=== PATIENT | female | born 1970 | race Asian ===

== ENCOUNTER → 2017-08-11 | Outpatient (REF) | payer OTHER | LOC: M SFHCWAGY 09:22 | PROVIDERS: ATTEND Nurse Practitioner Women's Health | DX: Z12.4 Encounter for screening for malignant neoplasm of cervix (principal) ==

== ENCOUNTER → 2017-10-30 | Outpatient (REF) | payer OTHER ==
[2017-10-30 13:55] LABS: BASO # 0.1 10^3/uL (0.0-0.2); BASO % 0.9 % (0.0-1.0); EOS # 0.1 10^3/uL (0.0-0.50); EOS % 2.1 % (0.0-3.0); HEMATOCRIT 38.9 % (36.0-47.0); HEMOGLOBIN 11.8 g/dl (12.0-16.0); IMMATURE GRANULOCYTE % 0.3 % (0-0); LYMPH # 1.5 10^3/uL (1.5-4.5); LYMPH % 21.8 % (24.0-44.0); MEAN CORPUSCULAR HEMOGLOBIN 20.2 pg (27.0-33.0); MEAN CORPUSCULAR HGB CONC 30.3 g/dl (32.0-36.5); MEAN CORPUSCULAR VOLUME 66.5 fl (80.0-96.0); MONO # 0.4 10^3/uL (0.0-0.8); MONO % 5.6 % (0.0-5.0); NEUTROPHILS # 4.7 10^3/uL (1.8-7.7); NEUTROPHILS % 69.3 % (36.0-66.0); PLATELET COUNT, AUTOMATED 489 10^3/uL (150-450); RED BLOOD COUNT 5.85 10^6/uL (4.00-5.40); RED CELL DISTRIBUTION WIDTH 15.6 % (11.5-14.5); WHITE BLOOD COUNT 6.8 10^3/uL (4.0-10.0)
[2017-10-30 14:19] LABS: ALBUMIN 3.9 GM/DL (3.2-5.2); ALBUMIN/GLOBULIN RATIO 1.05 (1.00-1.93); ALKALINE PHOSPHATASE 60 U/L (45-117); ALT/SGPT 21 U/L (12-78); AMYLASE 73 U/L (25-115); ANION GAP 5 MEQ/L (8-16); AST/SGOT 21 U/L (7-37); BILIRUBIN,TOTAL 0.3 MG/DL (0.2-1.0); BLOOD UREA NITROGEN 15 MG/DL (7-18); CALCIUM LEVEL 8.9 MG/DL (8.5-10.1); CARBON DIOXIDE LEVEL 32 MEQ/L (21-32); CHLORIDE LEVEL 104 MEQ/L (98-107); CREATININE FOR GFR 0.53 MG/DL (0.55-1.02); GLOMERULAR FILTRATION RATE > 60.0 (>58); GLUCOSE, FASTING 79 MG/DL (70-105); LIPASE 104 U/L (73-393); SODIUM LEVEL 141 MEQ/L (136-145); TOTAL PROTEIN 7.6 GM/DL (6.4-8.2)
[2017-11-01 00:08] LABS: H PYLORI SERUM QUANT IGA <9.0 units (0.0-8.9)
== END ==
LOC: M SFHCPLAZ 09:36
DX: R10.32 Left lower quadrant pain (principal)

== ENCOUNTER → 2017-11-06 | Outpatient (REF) | payer OTHER ==
[2017-11-07 00:28] LABS: FERRITIN 45 NG/ML (8-252); IRON (FE) 100 UG/DL (50-170); PERCENT SATURATION 33.2 % (13.2-45.0); TOTAL IRON BINDING CAPACITY 301 UG/DL (250-450)
== END ==
LOC: M SFHCPLAZ 16:26
DX: D50.9 Iron deficiency anemia, unspecified (principal)
CPT/HCPCS: 83550

== ENCOUNTER → 2017-11-08 | Outpatient (REF) | payer OTHER ==
[2017-11-10 00:09] LABS: H PYLORI STOOL ANTIGEN Negative (Negative)
== END ==
LOC: M SFHCPLAZ 13:18
DX: D50.9 Iron deficiency anemia, unspecified (principal)
CPT/HCPCS: 82270

== ENCOUNTER → 2018-07-06 | Outpatient (REF) | payer OTHER ==
[2018-07-06 16:57] LABS: HEMATOCRIT 40.4 % (36.0-47.0); MEAN CORPUSCULAR HEMOGLOBIN 20.3 pg (27.0-33.0); MEAN CORPUSCULAR HGB CONC 29.7 g/dl (32.0-36.5); MEAN CORPUSCULAR VOLUME 68.4 fl (80.0-96.0); PLATELET COUNT, AUTOMATED 347 10^3/uL (150-450); RED BLOOD COUNT 5.91 10^6/uL (4.00-5.40); RED CELL DISTRIBUTION WIDTH 16.1 % (11.5-14.5); WHITE BLOOD COUNT 6.9 10^3/uL (4.0-10.0)
[2018-07-06 17:19] LABS: FREE T4 1.08 NG/DL (0.76-1.46)
[2018-07-06 17:20] LABS: TOTAL 25(OH) VITAMIN D 16.2 NG/ML (30.0-100.0)
== END ==
LOC: M SFHCPLAZ 12:57
DX: R53.83 Other fatigue (principal)

== ENCOUNTER → 2018-07-25 | Outpatient (CLI) | payer OTHER | LOC: M LRY 14:20 | DX: R10.12 Left upper quadrant pain (principal); K59.8 Other specified functional intestinal disorders | CPT/HCPCS: 74018 ==

== ENCOUNTER → 2018-08-20 | Outpatient (CLI) | payer OTHER | LOC: M WHC 10:40 | DX: Z12.31 Encounter for screening mammogram for malignant neoplasm of breast (principal) | CPT/HCPCS: 77067 ==

== ENCOUNTER → 2018-09-24 | Outpatient (REF) | payer OTHER ==
[2018-09-24 18:39] LABS: ALBUMIN 3.6 GM/DL (3.2-5.2); ALKALINE PHOSPHATASE 49 U/L (45-117); ALT/SGPT 23 U/L (12-78); AST/SGOT 21 U/L (7-37); BILIRUBIN,DIRECT < 0.1 MG/DL (0.0-0.2); BILIRUBIN,TOTAL 0.3 MG/DL (0.2-1.0); TOTAL PROTEIN 7.2 GM/DL (6.4-8.2)
[2018-09-24 18:41] LABS: TOTAL 25(OH) VITAMIN D 58.1 NG/ML (30.0-100.0)
[2018-09-26 08:06] LABS: HEPATITIS B CORE ANTIBODY IGG Positive (Negative)
[2018-09-26 09:01] LABS: HEPATITIS B SURFACE ANTIBODY POSITIVE (POSITIVE)
[2018-09-26 09:39] LABS: HEPATITIS C VIRUS ABY INDEX 0.1 INDEX (<0.8)
[2018-09-26 09:39] LABS: HEPATITIS B CORE ANTIBODY IGM NEGATIVE (NEGATIVE)
[2018-09-26 09:42] LABS: HEPATITIS A ANTIBODY IGM NEGATIVE (NEGATIVE); HIV 1&2 SCREEN CENTAUR NEGATIVE (NEGATIVE)
== END ==
LOC: M SFHCPLAZ 14:12
DX: Z11.59 Encounter for screening for other viral diseases (principal); E55.9 Vitamin D deficiency, unspecified
CPT/HCPCS: 80076

== ENCOUNTER → 2018-10-10 | Outpatient (REF) | payer OTHER ==
[2018-10-14 00:44] LABS: HEPATITIS A IgG TOTAL Positive (Negative); HEPATITIS BE ANTIGEN Negative (Negative)
== END ==
LOC: M SFHCPLAZ 15:56
PROVIDERS: ATTEND Family Medicine
DX: Z11.59 Encounter for screening for other viral diseases (principal)

== ENCOUNTER → 2018-11-05 | Outpatient (CLI) | payer OTHER ==
[~2018-11-05] MED LIST: GASTROGRAFIN SOLUTION 30ML (Q9963) As Ordered ONE; ISOVUE-370 76% 100ML VIAL (Q9967) As Ordered ONE
--- NOTE | 2018-11-05 19:05 | REP ---
CT abdomen pelvis with IV and oral contrast: History: Rectal bleeding. No comparison CT. Comparison pelvic sonography is from February 08, 2010. CT contrast dose: 100 mL of intravenous Isovue 370. CT findings: Preliminary digital pharmacy tech customer service radiograph demonstrates moderate colonic stool. The lung bases are clear on axial CT images. The liver and the spleen are normal in size homogeneous in texture. No adrenal lesion is seen. Pancreas and gallbladder are unremarkable. Kidneys enhance symmetrically. There are small cortical cysts bilaterally. The largest of these is in the right mid kidney measuring 1.0 cm in greatest diameter. Urinary bladder is unremarkable. Small and large intestinal bowel loops show no abnormality on CT imaging. The uterus is retroverted retroflexed. There is a large mural fibroid in the right uterus. This measures 7.7 cm anteroposterior by 7.0 cm medial to lateral by 7.2 cm cranial to caudal. No ovarian lesion is seen on either side. No free fluid is noted. No pelvic adenopathy is seen. Impression: Retroverted retroflexed uterus with a large right uterine leiomyoma 7.7 cm in greatest diameter. Small cysts in each kidney. Otherwise negative. Electronically Signed by Mayito Torres MD 11/05/2018 07:53 P
== END ==
LOC: M RAD 16:35
PROVIDERS: ATTEND Internal Medicine Gastroenterology
DX: K64.0 First degree hemorrhoids (principal)
CPT/HCPCS: 74177; Q9963; Q9967

== ENCOUNTER 2018-11-13 09:03 | Day surgery (SDC) | payer OTHER ==
[~2018-11-13] VITALS: Ht 154.9 cm; Wt 51.2 kg
[~2018-11-13 09:03] MED LIST changes: +FISH7.5C PO; -GASTROGRAFIN SOLUTION 30ML (Q9963) As Ordered ONE; -ISOVUE-370 76% 100ML VIAL (Q9967) As Ordered ONE; +LIDOCAINE 2% INJ 100 MG/5 ML SDV (FOR ANES.) As Ordered ONE; +OMEP40CA2 PO; +PROPOFOL 200 MG/20 ML VIAL As Ordered ONE
[2018-11-13] MEDS ORDERED: NS 1,000 ML IV ONE (09:45)
--- NOTE | 2018-11-13 10:29 | ROOR ---
Patient Name: Shannon Bagley Procedure Date: 11/13/2018 10:17 AM Date of : 1970 Age: 47 Room: [facility] Gender: Female Note Status: Finalized Procedure: Upper GI endoscopy Indications: Lower abdominal pain, Upper abdominal pain Providers: Hever ODOM MD Referring MD: ILIANA RAMIREZ MD Requesting Provider: Medicines: Monitored Anesthesia Care Complications: No immediate complications. Procedure: Pre-Anesthesia Assessment: - The heart rate, respiratory rate, oxygen saturations, blood pressure, adequacy of pulmonary ventilation, and response to care were monitored throughout the procedure. The Endoscope was introduced through the mouth, and advanced to the second part of duodenum. The upper GI endoscopy was accomplished without difficulty. The patient tolerated the procedure well. Findings: The examined esophagus was normal. The entire examined stomach was large volume, but otherwise normal. Biopsies were taken with a cold forceps for Helicobacter pylori testing. The examined duodenum was normal. Impression: - Normal esophagus. - Normal stomach. Biopsied. - Normal examined duodenum. Recommendation: - Continue present medications. - Observe patient's clinical course. - Telephone endoscopist for pathology results in 2 weeks. Hever Odom MD Hever ODOM MD 11/13/2018 10:28:46 AM This report has been signed electronically. Number of Addenda: 0 Note Initiated On: 11/13/2018 10:17 AM Estimated Blood Loss: Estimated blood loss: none.
--- NOTE | 2018-11-13 10:47 | ROOR ---
Patient Name: Shannon Bagley Procedure Date: 11/13/2018 10:18 AM Date of : 1970 Age: 47 Room: [facility] Gender: Female Note Status: Finalized Procedure: Colonoscopy Indications: Generalized abdominal pain, Hematochezia, Constipation Providers: Hever ODOM MD Referring MD: ILIANA RAMIREZ MD Requesting Provider: Medicines: Monitored Anesthesia Care Complications: No immediate complications. Procedure: Pre-Anesthesia Assessment: - The heart rate, respiratory rate, oxygen saturations, blood pressure, adequacy of pulmonary ventilation, and response to care were monitored throughout the procedure. The Colonoscope was introduced through the anus and advanced to 10 cm into the ileum. The colonoscopy was performed without difficulty. The patient tolerated the procedure well. The quality of the bowel preparation was good. Findings: The perianal and digital rectal examinations were normal. Internal hemorrhoids were found during retroflexion. The hemorrhoids were medium-sized. The colon (entire examined portion) was moderately redundant. The entire examined colon appeared normal on direct and retroflexion views. The terminal ileum appeared normal. Impression: - Moderate prolapsing Internal hemorrhoids. - The entire examined colon is normal on direct and retroflexion views. - The examined portion of the ileum was normal. - No specimens collected. Recommendation: - Miralax 1 capful (17 grams) in 8 ounces of water once a day, may increase to twice a day if necessary. - Return to referring physician at the next available appointment. 1) Your abdominal discomfort is likely due to constipation. You should take a daily dose of Miralax. 2) Your CT scan was normal, except for a uterine leiomyoma (benign tumor). This may or may not be the cause for abdominal discomfort. Hever Odom MD Hever ODOM MD 11/13/2018 10:47:09 AM This report has been signed electronically. Number of Addenda: 0 Note Initiated On: 11/13/2018 10:18 AM Estimated Blood Loss: Estimated blood loss: none.
[2018-11-13 11:00] VITALS: BP 126/67
== END 2018-11-13 11:55 | disposition home or self-care (01) ==
LOC: M OPP 09:03
PROVIDERS: ATTEND Internal Medicine Gastroenterology
DX: K64.8 Other hemorrhoids (principal); Q43.8 Other specified congenital malformations of intestine; R10.84 Generalized abdominal pain; K92.1 Melena; K59.00 Constipation, unspecified; R10.30 Lower abdominal pain, unspecified; R10.10 Upper abdominal pain, unspecified

== ENCOUNTER → 2018-11-16 | Outpatient (CLI) | payer OTHER ==
[~2018-11-16] MED LIST changes: -LIDOCAINE 2% INJ 100 MG/5 ML SDV (FOR ANES.) As Ordered ONE; -PROPOFOL 200 MG/20 ML VIAL As Ordered ONE
--- NOTE | 2018-11-16 11:34 | REP ---
Clinical: Uterine fibroid . Technique: Transabdominal pelvic ultrasound followed by transvaginal examination for better evaluation of the endometrium and adnexa. Findings: Bladder is unremarkable and measures 13.8 x 5.9 x 812.0 cm . Anteverted uterus measures 8.5 x 4.1 x 9.6 cm with a right fundal fibroid measuring 7.8 x 7.4 x 10.0 cm. The endometrial complex measures 11.2 mm thickness with suggestions for 11 mm endometrial polyp. Bilateral ovaries are normal in appearance. Right ovary measures 1.5 x 1.0 x 1.0 cm ; Left ovary measures 2.8 x 2.2 x 3.1 cm. Impression: 1. 10 cm right fundal fibroid. 2. Possible 11 mm endometrial polyp. 3. Normal appearance the bilateral ovaries. Electronically Signed by Breezy Chávez MD 11/16/2018 11:25 A
== END ==
LOC: M WHC 09:38
PROVIDERS: ATTEND Nurse Practitioner Women's Health
DX: D25.9 Leiomyoma of uterus, unspecified (principal)

== ENCOUNTER 2019-01-14 06:11 | Day surgery (SDC) | payer OTHER ==
[~2019-01-14] VITALS: Ht 154.9 cm; Wt 52.2 kg
[2019-01-14] VITALS (7 sets, daily range): BP systolic 99–113; BP diastolic 50–61
[~2019-01-14 06:11] MED LIST changes: +LR 1,000 ML IV ONE; +PEG1POW PO; +VITA200038 PO; +[UNRECOGNIZED DRUG - CODE] PO
[2019-01-14 06:38] LABS: HEMATOCRIT 41.3 % (36.0-47.0); HEMOGLOBIN 12.7 g/dl (12.0-15.5); MEAN CORPUSCULAR HEMOGLOBIN 20.5 pg (27.0-33.0); MEAN CORPUSCULAR HGB CONC 30.8 g/dl (32.0-36.5); MEAN CORPUSCULAR VOLUME 66.5 fl (80.0-96.0); PLATELET COUNT, AUTOMATED 356 10^3/uL (150-450); RED BLOOD COUNT 6.21 10^6/uL (4.00-5.40); WHITE BLOOD COUNT 15.2 10^3/uL (4.0-10.0)
[2019-01-14 06:57] LABS: BLOOD UREA NITROGEN 16 MG/DL (7-18); CALCIUM LEVEL 8.4 MG/DL (8.5-10.1); CARBON DIOXIDE LEVEL 28 MEQ/L (21-32); CHLORIDE LEVEL 104 MEQ/L (98-107); CREATININE FOR GFR 0.61 MG/DL (0.55-1.30); GLOMERULAR FILTRATION RATE > 60.0 (>51); GLUCOSE, FASTING 87 MG/DL (70-100); POTASSIUM SERUM 3.7 MEQ/L (3.5-5.1); SODIUM LEVEL 139 MEQ/L (136-145)
[2019-01-14] MEDS ORDERED: EMER1PAK PO (07:09)
[2019-01-14] MEDS ORDERED: LIDOCAINE 2% INJ 100 MG/5 ML SDV (FOR ANES.) As Ordered ONE (07:14)
[2019-01-14] MEDS ORDERED: PROPOFOL 200 MG/20 ML VIAL As Ordered ONE (07:14)
[2019-01-14] MEDS ORDERED: ROCURONIUM BROMIDE 50 MG/5 ML VIAL As Ordered ONE (07:14)
[2019-01-14] MEDS ORDERED: MIDAZOLAM INJ 2 MG/2 ML VIAL (J2250) As Ordered ONE (07:15)
[2019-01-14] MEDS ORDERED: fentaNYL 250 MCG/5 ML INJECTION (J3010) As Ordered ONE (07:15)
[2019-01-14] MEDS ORDERED: PERCOCET PO (07:15)
[2019-01-14] MEDS ORDERED: IBUP80TA PO (07:16)
[2019-01-14] MEDS ORDERED: BUPIVACAINE HCL 0.25% 30 ML VIAL As Ordered ONE (07:17)
[2019-01-14] MEDS ORDERED: METHYLENE BLUE 0.5% (5MG/ML) 10 ML AMP (PROVAYBLUE)(Q9968 PER 1MG) As Ordered ONE (07:17)
[2019-01-14] MEDS ORDERED: dexameTHASONE 4 MG/ML 1ML VIAL (J1100) As Ordered ONE (07:48)
[2019-01-14] MEDS ORDERED: METOCLOPRAMIDE INJ 10MG/2ML VIAL (J2765) As Ordered ONE (08:03)
[2019-01-14] MEDS ORDERED: ONDANSETRON 4MG/2ML VIAL (J2405) As Ordered ONE (08:04)
[2019-01-14] MEDS ORDERED: HYDROmorphone HCL 2 MG/ML 1ML VIAL (J1170) As Ordered ONE (08:05)
[2019-01-14] MEDS ORDERED: KETOROLAC 60 MG/2 ML VIAL (J1885) As Ordered ONE (08:05)
[2019-01-14] MEDS ORDERED: NEOSTIGMINE 10 MG/10 ML VIAL (J2710) As Ordered ONE (08:09)
[2019-01-14] MEDS ORDERED: GLYCOPYRROLATE INJ 0.2 MG/ML 2 ML VIAL As Ordered ONE (08:09)
--- NOTE | 2019-01-14 08:52 | ECGEPIP ---
Stationary ECG Study [facility] Test Date: 2019-01-14 Pat Name: VERONIKA BOUDREAUX Department: Room: - Gender: F Climatologist: [facility] : 1970 Requested By: Tod Lehman Order Number: [id number] Reading MD: Octavia Jj Measurements Intervals [place] Rate: 79 P: 75 IN: 160 QRS: 46 QRSD: 102 T: 29 QT: 360 QTc: 414 Interpretive Statements SINUS RHYTHM INCOMPLETE RIGHT BUNDLE BRANCH BLOCK NONSPECIFIC T-WAVE ABNORMALITY NO PRIOR Electronically Signed On 01-14-2019 8:52:25 EDT by Octavia Jj
[2019-01-14] MEDS ORDERED: MORPHINE 4 MG/ML 1ML VIAL/SYRINGE (J2270) IV PRN (10:30)
[2019-01-14] MEDS ORDERED: ONDANSETRON 4MG/2ML VIAL (J2405) IV PRN ×2 (10:30)
[2019-01-14] MEDS ORDERED: fentaNYL 100 MCG/2 ML INJECTION (J3010) IV PRN (10:30)
[2019-01-14] MEDS ORDERED: LR 1,000 ML IV SCH (10:30)
[2019-01-14] MEDS ORDERED: KETOROLAC 30 MG/ML VIAL (J1885) IV PRN (10:30)
[2019-01-14] MEDS ORDERED: PERCOCET 5MG/325MG TAB PO PRN ×2 (10:30)
[2019-01-14] MEDS ORDERED: HYDROMORPHONE HCL 0.5 MG/ 0.5 ML SYRINGE (J1170 PER 1) IV PRN (10:30)
[2019-01-14] MEDS: LR 1,000 ML IV SCH ×2 (11:15→16:31)
[2019-01-14] MEDS: DOCUSATE SODIUM 100 MG CAP PO SCH ×2 (14:38→20:06)
[2019-01-14] MEDS: PERCOCET 5MG/325MG TAB PO PRN ×2 (14:38→23:50)
[2019-01-15] VITALS: BP 117/58
[2019-01-15] MEDS: PERCOCET 5MG/325MG TAB PO PRN (09:12)
[2019-01-15] MEDS: DOCUSATE SODIUM 100 MG CAP PO SCH (09:12)
[2019-01-15 09:42] VITALS: BP 117/58
--- NOTE | 2019-01-15 13:30 | RO ---
DATE OF PROCEDURE: 01/14/2019 PREOPERATIVE DIAGNOSIS: Fibroids, menorrhagia. POSTOPERATIVE DIAGNOSIS: Fibroids, menorrhagia. PROCEDURE: Robotic assisted laparoscopic hysterectomy, bilateral salpingo-oophorectomy, cystoscopy. SURGEON: Kyle Hassan MD CHIEF LIBRARIAN BRANCH: Tess Kim NP and Juan A Dill DO. ANESTHESIA: General endotracheal. ESTIMATED BLOOD LOSS: 200 mL. URINE OUTPUT: 100 mL. FINDINGS: Large irregular fibroid uterus. Normal ovaries and fallopian tubes. Normal upper abdomen. OPERATIVE SUMMARY: The patient was taken to the operating room where general endotracheal anesthesia was induced. She was prepped and draped in sterile fashion in the dorsal lithotomy position. A Wheeler catheter was placed. A VCare uterine manipulator was placed. A periumbilical incision was made with a scalpel. A Veress needle was placed through this incision while tenting upon skin of the abdomen. Intraabdominal location of the Veress was assessed with use of a saline filled syringe. A pneumoperitoneum was created. The Veress needle was removed. A 9 mm trocar using Precognateort was inserted through this incision. Three 8 mm suprapubic ports were placed under direct visualization. Using the bipolar fenestrated device and the vessel sealer, the IP ligaments, broad ligament attachments and round ligaments were coagulated and incised. The anterior and posterior leaves of the broad ligament were . A bladder flap was created. Uterine vessels were coagulated and incised at the level VCare cup. Using the monopolar Endo Michaela, colpotomy was created at the level of the VCare cup and the upper vagina was circumscribed. Specimen included the uterus, cervix, fallopian tubes, and ovaries. The specimen was placed in a bag, which was brought through the vaginal opening. The specimens was morcellated at the vagina and kept within the bag. The specimen was removed in multiple pieces. With specimens removed, the surgeons were able to return to the abdomen. The vaginal cuff was closed with #1 V-Loc suture in a running fashion. The pelvis was irrigated with good hemostasis noted. Cystoscopy was performed using a 70 degree cystoscope. The patient received methylene blue dye intravenously. Bilateral ureteral jets were identified. There was no evidence of injury to the bladder. The skin was closed with #4-0 Monocryl subcuticular sutures. Sponge, instrument and needle counts were correct. Tess Kim NP assisted throughout the majority of the procedure. She assisted with positioning the patient and placement of ports. She manipulated the uterus throughout the procedure. Dr. Juan A Dill helped with morcellation of the specimen and removal of the specimen at the vagina.
== END 2019-01-15 13:00 | disposition home or self-care (01) ==
LOC: M SDC 06:11 → M PED 11:13 → M SDC 01-15 13:00
PROVIDERS: ATTEND Specialist
DX: D25.9 Leiomyoma of uterus, unspecified (principal); N85.01 Benign endometrial hyperplasia; K21.9 Gastro-esophageal reflux disease without esophagitis; Z79.899 Other long term (current) drug therapy
CPT/HCPCS: 36415; 58573; 80048; 85027; 86850; 86900; 86901; 88307; 93005; 96361; 96374; J0690; J1100; J1170; J1885; J2250; J2405; J2710; J2765; J3010; Q9968

== ENCOUNTER 2019-05-24 20:27 | Emergency (ER) | payer OTHER ==
[~2019-05-24] VITALS: Ht 154.9 cm; Wt 54.1 kg
[2019-05-24 20:27] VITALS: BP 152/72
[~2019-05-24 20:27] MED LIST changes: +EMER1PAK PO; +IBUP80TA PO; -LR 1,000 ML IV ONE; -OMEP40CA2 PO; +OMEP40CA97 PO; +PERCOCET PO
[2019-05-24] MEDS ORDERED: ELIM5CRE2 TOP (22:52)
== END 2019-05-24 23:07 | disposition home or self-care (01) ==
LOC: M ED 20:27
DX: B86 Scabies (principal); Z79.899 Other long term (current) drug therapy

== ENCOUNTER 2019-05-27 16:10 | Emergency (ER) | payer OTHER ==
[~2019-05-27] VITALS: Ht 154.9 cm; Wt 54.1 kg
[~2019-05-27 16:10] MED LIST changes: +ELIM5CRE2 TOP; +OMEP40CA2 PO; -OMEP40CA97 PO
[2019-05-27] MEDS ORDERED: OMEP-221 (16:18)
[2019-05-27] MEDS ORDERED: PERM5CRE9 (16:18)
[2019-05-27] MEDS ORDERED: hydrOXYzine 25 MG TAB PO STA (19:00)
[2019-05-27] MEDS ORDERED: predniSONE 20 MG TAB PO ONE (19:00)
[2019-05-27] MEDS ORDERED: diphenhydrAMINE 25 MG CAP PO ONE (19:00)
[2019-05-27] MEDS ORDERED: HYDR-3363 PO (19:02)
[2019-05-27] MEDS ORDERED: PRED20TA PO (19:02)
[2019-05-27 19:07] VITALS: BP 136/75
== END 2019-05-27 19:23 | disposition home or self-care (01) ==
LOC: M ED 16:10
DX: L29.9 Pruritus, unspecified (principal); L25.9 Unspecified contact dermatitis, unspecified cause; Z79.899 Other long term (current) drug therapy

== ENCOUNTER → 2019-06-10 | Outpatient (REF) | payer OTHER ==
[~2019-06-10] MED LIST changes: +HYDR-3363 PO; +OMEP-221; +PERM5CRE9; +PRED20TA PO
== END ==
LOC: M SFHCPLAZ 17:06
PROVIDERS: ATTEND Dermatology
DX: L30.8 Other specified dermatitis (principal)

== ENCOUNTER → 2019-08-03 | Outpatient (REF) | payer OTHER ==
[~2019-08-03] MED LIST changes: -OMEP40CA2 PO; +OMEP40CA97 PO
[2019-08-03 18:58] LABS: ALBUMIN 3.6 GM/DL (3.2-5.2); ALT/SGPT 29 U/L (12-78); BILIRUBIN,TOTAL 0.3 MG/DL (0.2-1.0); BLOOD UREA NITROGEN 12 MG/DL (7-18); CALCIUM LEVEL 8.6 MG/DL (8.5-10.1); CARBON DIOXIDE LEVEL 32 MEQ/L (21-32); CHLORIDE LEVEL 104 MEQ/L (98-107); CHOLESTEROL LEVEL 199 MG/DL (<200); CHOLESTEROL RISK RATIO 3.431 (<5); CREATININE FOR GFR 0.58 MG/DL (0.55-1.30); GLOMERULAR FILTRATION RATE > 60.0 (>51); GLUCOSE, FASTING 79 MG/DL (70-100); HDL CHOLESTEROL 58 MG/DL (>40); LDL CHOLESTEROL 99 MG/DL (<100); NON-HDL-C 141 MG/DL; POTASSIUM SERUM 3.9 MEQ/L (3.5-5.1); SODIUM LEVEL 140 MEQ/L (136-145); TOTAL PROTEIN 7.3 GM/DL (6.4-8.2); TRIGLYCERIDES LEVEL 212 MG/DL (<150)
== END ==
LOC: M SFHCPLAZ 10:35
PROVIDERS: ATTEND Student in an Organized Health Care Education/Training Program
DX: Z13.1 Encounter for screening for diabetes mellitus (principal); Z13.220 Encounter for screening for lipoid disorders; Z86.19 Personal history of other infectious and parasitic diseases; K59.01 Slow transit constipation

== ENCOUNTER → 2019-08-26 | Outpatient (CLI) | payer OTHER ==
--- NOTE | 2019-08-26 12:58 | REPMRS ---
Patient History The patient states she had a clinical breast exam in 08/2019. Patient is nulliparous. No known family history of cancer. No Hormone Replacement Therapy Digital Woman Screen Mammo: August 26, 2019 - Exam #: [id number] Bilateral CC and MLO view(s) were taken. Technologist: Nidhi Beckham, Technologist Prior study comparison: August 20, 2018, bilateral digital woman screen mammo performed at [facility]. August 11, 2017, digital woman screen mammo performed at [facility]. August 24, 2016, digital woman screen mammo performed at [facility]. FINDINGS: The breast tissue is heterogeneously dense. This may lower the sensitivity of mammography. There is a moderate amount of heterogeneously dense fibroglandular tissue which is fairly symmetric. There is no interval development of dominant mass, architectural distortion, or grouped microcalcification typical of malignancy. There has been no change in the appearance of the mammogram from the prior studies. 3-D tomosynthesis shows no additional findings. Assessment: BI-RADS/ACR category 1 mammogram. Negative Mammogram. Recommendation Routine screening mammogram of both breasts in 1 year (for women over age 40). This patient's Lifetime Breast Cancer RIsk is estimated at 11.8 %. This mammogram was interpreted with the aid of an FDA-approved computer-aided dectection system. Electronically Signed By: Ming Torres MD 08/26/19 1257
== END ==
LOC: M WHC 09:55
PROVIDERS: ATTEND Nurse Practitioner Women's Health
DX: Z12.31 Encounter for screening mammogram for malignant neoplasm of breast (principal)

== ENCOUNTER → 2019-08-27 | Outpatient (REF) | payer OTHER ==
[2019-08-27 18:26] LABS: ALBUMIN 3.8 GM/DL (3.2-5.2); ALT/SGPT 29 U/L (12-78); BILIRUBIN,TOTAL 0.3 MG/DL (0.2-1.0); BLOOD UREA NITROGEN 12 MG/DL (7-18); CALCIUM LEVEL 8.8 MG/DL (8.5-10.1); CARBON DIOXIDE LEVEL 32 MEQ/L (21-32); CHLORIDE LEVEL 105 MEQ/L (98-107); CHOLESTEROL LEVEL 226 MG/DL (<200); CREATININE FOR GFR 0.56 MG/DL (0.55-1.30); GLOMERULAR FILTRATION RATE > 60.0 (>51); GLUCOSE, FASTING 83 MG/DL (70-100); HDL CHOLESTEROL 81 MG/DL (>40); LDL CHOLESTEROL 125 MG/DL (<100); NON-HDL-C 145 MG/DL; SODIUM LEVEL 140 MEQ/L (136-145); TOTAL PROTEIN 7.6 GM/DL (6.4-8.2); TRIGLYCERIDES LEVEL 98 MG/DL (<150)
== END ==
LOC: M SFHCPLAZ 15:38
PROVIDERS: ATTEND Family Medicine
DX: Z13.1 Encounter for screening for diabetes mellitus (principal); Z13.220 Encounter for screening for lipoid disorders; Z86.19 Personal history of other infectious and parasitic diseases; K59.01 Slow transit constipation

== ENCOUNTER → 2020-10-01 | Outpatient (REF) | payer OTHER ==
[2020-10-01 18:03] LABS: BASO # 0.1 10^3/uL (0.0-0.2); BASO % 1.5 % (0.0-1.0); EOS # 0.2 10^3/uL (0.0-0.5); HEMATOCRIT 41.2 % (36.0-47.0); LYMPH # 1.4 10^3/uL (1.5-5.0); MEAN CORPUSCULAR HEMOGLOBIN 19.4 pg (27.0-33.0); MEAN CORPUSCULAR HGB CONC 29.1 g/dl (32.0-36.5); MEAN CORPUSCULAR VOLUME 66.8 fl (80.0-96.0); MONO # 0.4 10^3/uL (0.0-0.8); MONO % 6.8 % (0.0-5.0); NEUTROPHILS # 3.3 10^3/uL (1.5-8.5); NEUTROPHILS % 61.5 % (36.0-66.0); PLATELET COUNT, AUTOMATED 415 10^3/uL (150-450); RED BLOOD COUNT 6.17 10^6/uL (4.00-5.40); WHITE BLOOD COUNT 5.3 10^3/uL (4.0-10.0)
[2020-10-01 18:11] LABS: ALBUMIN 4.2 GM/DL (3.2-5.2); ALT/SGPT 28 U/L (12-78); BILIRUBIN,TOTAL 0.2 MG/DL (0.2-1.0); BLOOD UREA NITROGEN 12 MG/DL (7-18); CALCIUM LEVEL 9.2 MG/DL (8.5-10.1); CARBON DIOXIDE LEVEL 32 MEQ/L (21-32); CHLORIDE LEVEL 107 MEQ/L (98-107); CHOLESTEROL LEVEL 217 MG/DL (<200); CHOLESTEROL RISK RATIO 2.972 (<5); CREATININE FOR GFR 0.56 MG/DL (0.55-1.30); GLOMERULAR FILTRATION RATE > 60.0 (>51); GLUCOSE, FASTING 95 MG/DL (70-100); HDL CHOLESTEROL 73 MG/DL (>40); LDL CHOLESTEROL 130 MG/DL (<100); NON-HDL-C 144 MG/DL; POTASSIUM SERUM 4.6 MEQ/L (3.5-5.1); SODIUM LEVEL 141 MEQ/L (136-145); TRIGLYCERIDES LEVEL 71 MG/DL (<150)
[2020-10-01 18:13] LABS: TOTAL 25(OH) VITAMIN D 43.7 NG/ML (30.0-100.0)
[2020-10-01 20:04] LABS: HEMOGLOBIN A1c 5.8 %
== END ==
LOC: M SFHCPLAZ 15:47
DX: Z00.01 Encounter for general adult medical examination with abnormal findings (principal); D50.9 Iron deficiency anemia, unspecified; Z13.1 Encounter for screening for diabetes mellitus; E55.9 Vitamin D deficiency, unspecified

== ENCOUNTER → 2020-10-08 | Outpatient (REF) | payer OTHER ==
[2020-10-08 13:34] LABS: BASO # 0.1 10^3/uL (0.0-0.2); BASO % 1.2 % (0.0-1.0); EOS # 0.2 10^3/uL (0.0-0.5); EOS % 3.8 % (0.0-3.0); HEMATOCRIT 40.5 % (36.0-47.0); HEMOGLOBIN 11.8 g/dl (12.0-15.5); LYMPH # 1.9 10^3/uL (1.5-5.0); LYMPH % 32.1 % (24.0-44.0); MEAN CORPUSCULAR HEMOGLOBIN 19.3 pg (27.0-33.0); MEAN CORPUSCULAR HGB CONC 29.1 g/dl (32.0-36.5); MEAN CORPUSCULAR VOLUME 66.4 fl (80.0-96.0); MONO # 0.4 10^3/uL (0.0-0.8); MONO % 6.6 % (0.0-5.0); NEUTROPHILS # 3.2 10^3/uL (1.5-8.5); NEUTROPHILS % 56.1 % (36.0-66.0); PLATELET COUNT, AUTOMATED 388 10^3/uL (150-450); WHITE BLOOD COUNT 5.8 10^3/uL (4.0-10.0)
[2020-10-08 14:01] LABS: ALT/SGPT 23 U/L (12-78); BILIRUBIN,TOTAL 0.2 MG/DL (0.2-1.0); BLOOD UREA NITROGEN 13 MG/DL (7-18); CALCIUM LEVEL 8.6 MG/DL (8.5-10.1); CARBON DIOXIDE LEVEL 31 MEQ/L (21-32); CHLORIDE LEVEL 104 MEQ/L (98-107); CHOLESTEROL LEVEL 200 MG/DL (<200); CHOLESTEROL RISK RATIO 2.898 (<5); CREATININE FOR GFR 0.63 MG/DL (0.55-1.30); GLOMERULAR FILTRATION RATE > 60.0 (>51); GLUCOSE, FASTING 89 MG/DL (70-100); HDL CHOLESTEROL 69 MG/DL (>40); LDL CHOLESTEROL 122 MG/DL (<100); NON-HDL-C 131 MG/DL; POTASSIUM SERUM 4.6 MEQ/L (3.5-5.1); SODIUM LEVEL 140 MEQ/L (136-145); TOTAL PROTEIN 7.6 GM/DL (6.4-8.2); TRIGLYCERIDES LEVEL 45 MG/DL (<150)
[2020-10-08 15:03] LABS: HEMOGLOBIN A1c 5.6 %
[2020-10-08 15:21] LABS: TOTAL 25(OH) VITAMIN D 40.5 NG/ML (30.0-100.0)
== END ==
LOC: M SFHCPLAZ 10:19
DX: Z00.01 Encounter for general adult medical examination with abnormal findings (principal); D50.9 Iron deficiency anemia, unspecified; Z13.1 Encounter for screening for diabetes mellitus; E55.9 Vitamin D deficiency, unspecified

== ENCOUNTER → 2020-10-26 | Outpatient (CLI) | payer OTHER ==
--- NOTE | 2020-10-26 11:23 | REPMRS ---
Patient History The patient states she has not had a clinical breast exam in over a year. No known family history of cancer. No Hormone Replacement Therapy 3D TOMOSYNTHESIS WAS PERFORMED. [facility] for [facility] 11.6%. Volpara breast density c. Digital Woman Screen Mammo: October 26, 2020 - Exam #: [id number] Bilateral CC and MLO view(s) were taken. Technologist: Tami Anna, Technologist Prior study comparison: August 26, 2019, bilateral digital woman screen mammo performed at [facility]. August 20, 2018, bilateral digital woman screen mammo performed at [facility]. FINDINGS: The breast tissue is heterogeneously dense. This may lower the sensitivity of mammography. There has been no change in the appearance of the mammogram from the prior studies. There is a moderate amount of residual fibroglandular tissue which is fairly symmetric. There is no interval development of dominant mass, areas of architectural distortion, or clustered microcalcification typical of malignancy. Assessment: BI-RADS/ACR category 1 mammogram. Negative Mammogram. Recommendation Routine screening mammogram in 1 year (for women over age 40). This mammogram was interpreted with the aid of an FDA-approved computer-aided dectection system. Electronically Signed By: Travon Castro MD 10/26/20 1122
== END ==
LOC: M WHC 10:31
PROVIDERS: ATTEND Family Medicine
DX: Z12.31 Encounter for screening mammogram for malignant neoplasm of breast (principal)

== ENCOUNTER → 2021-06-24 | Outpatient (CLI) | payer OTHER ==
[~2021-06-24] MED LIST changes: +OMEP40CA4 PO; -OMEP40CA97 PO; -PEG1POW PO; +POLY17PO10 PO
[2021-06-24 13:56] LABS: HEPATITIS A ANTIBODY IGM NEGATIVE (NEGATIVE); HEPATITIS B CORE ANTIBODY IGM NEGATIVE (NEGATIVE); HEPATITIS B SURFACE ANTIGEN NEGATIVE (NEGATIVE)
== END ==
LOC: M WUC 09:41
PROVIDERS: ATTEND Family Medicine
DX: Z11.59 Encounter for screening for other viral diseases (principal)

== ENCOUNTER → 2021-11-02 | Outpatient (CLI) | payer OTHER ==
[~2021-11-02] MED LIST changes: -OMEP-221; +OMEP40CA5
[2021-11-02 13:22] LABS: HEMATOCRIT 41.2 % (36.0-47.0); HEMOGLOBIN 12.5 g/dl (12.0-15.5); MEAN CORPUSCULAR HEMOGLOBIN 20.4 pg (27.0-33.0); MEAN CORPUSCULAR HGB CONC 30.3 g/dl (32.0-36.5); MEAN CORPUSCULAR VOLUME 67.2 fl (80.0-96.0); PLATELET COUNT, AUTOMATED 371 10^3/uL (150-450); RED BLOOD COUNT 6.13 10^6/uL (4.00-5.40); WHITE BLOOD COUNT 5.8 10^3/uL (4.0-10.0)
[2021-11-02 14:52] LABS: ALT/SGPT 28 U/L (12-78); BILIRUBIN,TOTAL 0.3 MG/DL (0.2-1.0); BLOOD UREA NITROGEN 14 MG/DL (7-18); CALCIUM LEVEL 8.9 MG/DL (8.5-10.1); CARBON DIOXIDE LEVEL 31 MEQ/L (21-32); CHLORIDE LEVEL 104 MEQ/L (98-107); CHOLESTEROL LEVEL 227 MG/DL (<200); CREATININE FOR GFR 0.57 MG/DL (0.55-1.30); GLOMERULAR FILTRATION RATE > 60.0 (>51); GLUCOSE, FASTING 94 MG/DL (70-100); HDL CHOLESTEROL 78 MG/DL (>40); LDL CHOLESTEROL 129 MG/DL (<100); NON-HDL-C 149 MG/DL; POTASSIUM SERUM 4.1 MEQ/L (3.5-5.1); SODIUM LEVEL 141 MEQ/L (136-145); TOTAL PROTEIN 7.8 GM/DL (6.4-8.2); TRIGLYCERIDES LEVEL 98 MG/DL (<150)
[2021-11-02 14:59] LABS: TOTAL 25(OH) VITAMIN D 29.1 NG/ML (30.0-100.0)
== END ==
LOC: M PLALAB 11:13
PROVIDERS: ATTEND Family Medicine
DX: E55.9 Vitamin D deficiency, unspecified (principal)

== ENCOUNTER → 2021-11-02 | Outpatient (CLI) | payer OTHER | LOC: M WHC 10:02 | PROVIDERS: ATTEND Nurse Practitioner Women's Health | DX: Z12.31 Encounter for screening mammogram for malignant neoplasm of breast (principal) ==

== ENCOUNTER → 2021-12-02 | Outpatient (CLI) | payer OTHER ==
[2021-12-02 16:17] LABS: PERCENT SATURATION 20.4 % (13.2-45.0)
== END ==
LOC: M PLALAB 11:52
PROVIDERS: ATTEND Family Medicine
DX: R71.8 Other abnormality of red blood cells (principal)

== ENCOUNTER → 2021-12-03 | Outpatient (CLI) | payer OTHER ==
[2021-12-03 17:25] LABS: BILIRUBIN,DIRECT < 0.1 MG/DL (0.0-0.2); BILIRUBIN,TOTAL 0.2 MG/DL (0.2-1.0); LDH LACTATE DEHYDROGENASE 293 U/L (84-246)
== END ==
LOC: M PLALAB 14:28
PROVIDERS: ATTEND Family Medicine
DX: R71.8 Other abnormality of red blood cells (principal)

== ENCOUNTER → 2022-11-28 | Outpatient (CLI) | payer OTHER ==
[~2022-11-28] MED LIST changes: +FISH10005 PO; -FISH7.5C PO
[2022-11-28 11:42] LABS: HEMATOCRIT 41.8 % (36.0-47.0); HEMOGLOBIN 12.6 g/dl (12.0-15.5); MEAN CORPUSCULAR HEMOGLOBIN 19.9 pg (27.0-33.0); MEAN CORPUSCULAR HGB CONC 30.1 g/dl (32.0-36.5); PLATELET COUNT, AUTOMATED 401 10^3/uL (150-450); RED BLOOD COUNT 6.33 10^6/uL (4.00-5.40); WHITE BLOOD COUNT 5.7 10^3/uL (4.0-10.0)
[2022-11-28 11:50] LABS: HEMOGLOBIN A1c 5.6 % (4.0-6.0)
[2022-11-28 12:17] LABS: ALBUMIN 3.7 G/DL (3.2-5.2); ALKALINE PHOSPHATASE 77 U/L (46-116); ALT/SGPT 27 U/L (7.0-40); AST/SGOT 26 U/L (<34); BILIRUBIN,TOTAL 0.4 MG/DL (0.3-1.2); BLOOD UREA NITROGEN 13 MG/DL (9-23); CALCIUM LEVEL 8.8 MG/DL (8.5-10.1); CARBON DIOXIDE LEVEL 29 MMOL/L (20-31); CHLORIDE LEVEL 106 MMOL/L (98-107); CHOLESTEROL LEVEL 221 MG/DL (<200); CHOLESTEROL RISK RATIO 3.08 (<5); CREATININE FOR GFR 0.62 MG/DL (0.55-1.30); GLOMERULAR FILTRATION RATE > 60.0 (>51); GLUCOSE, FASTING 87 MG/DL (60-100); HDL CHOLESTEROL 71.6 MG/DL (>40); LDL CHOLESTEROL 136.2 MG/DL (<100); NON-HDL-C 149 MG/DL; SODIUM LEVEL 140 MMOL/L (136-145); TOTAL 25(OH) VITAMIN D 29.2 NG/ML (20.0-100.0); TOTAL PROTEIN 7.2 G/DL (5.7-8.2); TRIGLYCERIDES LEVEL 66 MG/DL (<150)
[2022-11-28 12:28] LABS: HEPATITIS B SURFACE ANTIGEN NEGATIVE (NEGATIVE)
[2022-11-28 12:50] LABS: HEPATITIS B CORE ANTIBODY IGM NEGATIVE (NEGATIVE); HEPATITIS C VIRUS ABY INDEX 0.1 INDEX (<0.8)
== END ==
LOC: M WUC 09:33
PROVIDERS: ATTEND Family Medicine
DX: Z11.59 Encounter for screening for other viral diseases (principal); E55.9 Vitamin D deficiency, unspecified; Z13.1 Encounter for screening for diabetes mellitus; E78.00 Pure hypercholesterolemia, unspecified; D56.3 Thalassemia minor

== ENCOUNTER → 2022-12-05 | Outpatient (CLI) | payer OTHER | LOC: M WHC 07:40 | PROVIDERS: ATTEND Family Medicine | DX: Z12.31 Encounter for screening mammogram for malignant neoplasm of breast (principal) ==

== ENCOUNTER → 2024-09-06 | Outpatient (CLI) | payer OTHER ==
[2024-09-06 10:13] LABS: HEMATOCRIT 39.4 % (36.0-47.0); HEMOGLOBIN 12.2 g/dl (12.0-15.5); MEAN CORPUSCULAR HEMOGLOBIN 20.6 pg (27.0-33.0); MEAN CORPUSCULAR VOLUME 66.4 fl (80.0-96.0); PLATELET COUNT, AUTOMATED 373 10^3/uL (150-450); RED BLOOD COUNT 5.93 10^6/uL (4.00-5.40); WHITE BLOOD COUNT 5.6 10^3/uL (4.0-10.0)
[2024-09-06 10:39] LABS: IRON (FE) 81 UG/DL (50-170); PERCENT SATURATION 25.8 % (13.2-45.0); TOTAL IRON BINDING CAPACITY 314 UG/DL (250-425)
[2024-09-06 10:40] LABS: ALBUMIN 3.6 G/DL (3.2-5.2); ALKALINE PHOSPHATASE 71 U/L (35-104); ALT/SGPT 31 U/L (7.0-40); AST/SGOT 23 U/L (<34); BILIRUBIN,TOTAL 0.4 MG/DL (0.3-1.2); BLOOD UREA NITROGEN 16 MG/DL (9-23); CARBON DIOXIDE LEVEL 30 MMOL/L (20-31); CHLORIDE LEVEL 103 MMOL/L (98-107); CHOLESTEROL LEVEL 242 MG/DL (<200); CREATININE FOR GFR 0.53 MG/DL (0.55-1.30); GLOMERULAR FILTRATION RATE > 60.0 (>51); GLUCOSE, FASTING 81 MG/DL (60-100); HDL CHOLESTEROL 73.2 MG/DL (>40); LDL CHOLESTEROL 150.4 MG/DL (<100); NON-HDL-C 168.8 MG/DL; SODIUM LEVEL 141 MMOL/L (136-145); TOTAL PROTEIN 7.4 G/DL (5.7-8.2); TRIGLYCERIDES LEVEL 92 MG/DL (<150)
[2024-09-06 10:41] LABS: FERRITIN 77.6 NG/ML (7.3-270.7)
[2024-09-06 10:48] LABS: HEMOGLOBIN A1c 5.6 % (4.0-6.0)
== END ==
LOC: M WUC 08:36
PROVIDERS: ATTEND Family Medicine
DX: D50.9 Iron deficiency anemia, unspecified (principal); D56.3 Thalassemia minor; Z13.21 Encounter for screening for nutritional disorder; E78.00 Pure hypercholesterolemia, unspecified

== ENCOUNTER → 2024-10-07 | Outpatient (CLI) | payer OTHER | LOC: M WHC 10:31 | PROVIDERS: ATTEND Nurse Practitioner Family | DX: Z12.31 Encounter for screening mammogram for malignant neoplasm of breast (principal); R92.333 Mammographic heterogeneous density, bilateral breasts ==

== ENCOUNTER → 2025-04-23 | Outpatient (CLI) | payer OTHER ==
[~2025-04-23] MED LIST changes: -ELIM5CRE2 TOP; +PERM60CR8 TOP
== END ==
LOC: M LAB 08:36
DX: Z86.19 Personal history of other infectious and parasitic diseases (principal)

== ENCOUNTER → 2025-09-16 | Outpatient (CLI) | payer OTHER ==
[~2025-09-16] MED LIST changes: -FISH10005 PO; +FISH1CAP38 PO; -PERM5CRE9; +PERM60CR2
[2025-09-16 12:57] LABS: PLATELET COUNT, AUTOMATED 386 10^3/uL (150-450)
[2025-09-16 13:10] LABS: ESTIMATED AVERAGE GLUCOSE 114.0 MG/DL (60-110)
[2025-09-16 20:17] LABS: ALT/SGPT 23 U/L (7.0-40); AST/SGOT 29 U/L (<34); CALCIUM LEVEL 8.3 MG/DL (8.5-10.1); CARBON DIOXIDE LEVEL 31 MMOL/L (20-31); CHLORIDE LEVEL 105 MMOL/L (98-107); CHOLESTEROL LEVEL 228 MG/DL (<200); CHOLESTEROL RISK RATIO 3.30 (<5); CREATININE FOR GFR 0.58 MG/DL (0.55-1.30); GLOMERULAR FILTRATION RATE > 90.0 (>51); IRON (FE) 59 UG/DL (50-170); LDL CHOLESTEROL 143.3 MG/DL (<100); NON-HDL-C 159.1 MG/DL; PERCENT SATURATION 20.3 % (13.2-45.0); POTASSIUM SERUM 4.2 MMOL/L (3.5-5.1); SODIUM LEVEL 144 MMOL/L (136-145); TRIGLYCERIDES LEVEL 79 MG/DL (<150)
[2025-09-16 20:19] LABS: TOTAL 25(OH) VITAMIN D 35.3 NG/ML (20.0-100.0)
== END ==
LOC: M WUC 08:42
PROVIDERS: ATTEND Family Medicine
DX: E55.9 Vitamin D deficiency, unspecified (principal); D50.9 Iron deficiency anemia, unspecified; L93.1 Subacute cutaneous lupus erythematosus; E78.00 Pure hypercholesterolemia, unspecified; Z13.1 Encounter for screening for diabetes mellitus

== ENCOUNTER → 2025-09-29 | Outpatient (CLI) | payer OTHER | LOC: M WHC 07:49 | DX: Z12.31 Encounter for screening mammogram for malignant neoplasm of breast (principal) ==